=== PATIENT | female | born 1980 | race Caucasian/White ===

== ENCOUNTER 2022-05-03 12:03 | Emergency (ER) | payer OTHER ==
[~2022-05-03] VITALS: Ht 160 cm; Wt 121.1 kg
[2022-05-03 12:40] LABS: BASO % 0.2 % (0.0-1.0); EOS # 0.2 10*3/uL (0.0-0.4); EOS % 0.9 % (1.0-4.0); LYMPH % 5.7 % (27.0-41.0); MEAN CELL VOLUME 81.8 fl (81.0-99.0); MEAN CORPUSCULAR HGB 25.9 pg (27.0-31.0); MEAN CORPUSCULAR HGB CONC 31.7 g/dl (33.0-37.0); MEAN PLATELET VOLUME 9.8 fl (9.6-12.3); MONO # 1.1 10*3/uL (0.1-1.0); MONO % 6.8 % (3.0-9.0); NEUT # 14.4 10*3/uL (2.3-7.9); NEUT % 85.9 % (47.0-73.0); PLATELET COUNT AUTOMATED 337 10*3/uL (130-400); RED BLOOD COUNT 5.87 10*6/uL (4.10-5.10); RED CELL DISTRI WIDTH 15.1 % (0-14.5); WHITE BLOOD COUNT 16.8 10*3/uL (4.8-10.8)
[2022-05-03 12:56] LABS: ALKALINE PHOSPHATASE 64 U/L (46-116); BUN 14 mg/dl (9-23); CHLORIDE 102 mmol/L (98-107); LIPASE 31 U/L (12-53); POTASSIUM 4.3 mmol/L (3.4-5.1); SGPT/ALT 10 U/L (10-49); TOTAL PROTEIN 6.7 gm/dL (6.0-8.0)
[2022-05-03 13:45] LABS: BILIRUBIN Negative (Negative); BLOOD Trace-Lysed (Negative); CLARITY Cloudy (Clear); COLOR Yellow (Yellow); GLUCOSE Negative (Negative); KETONE Negative (Negative); LEUKO ESTERASE Negative (Negative); NITRITE Negative (Negative)
[2022-05-03 13:51] LABS: MUCOUS 1+
[2022-05-03 13:52] LABS: BACTERIA 1+; RBC 0-2 rbc/hpf (0-2)
[2022-05-03] MEDS ORDERED: REGLAN10 M1 PO (14:21)
[2022-05-03] MEDS ORDERED: CIPRO500 MG PO (14:21)
== END 2022-05-03 14:31 | disposition home or self-care (01) ==
LOC: ED 12:03
PROVIDERS: Internal Medicine
DX: R11.2 Nausea with vomiting, unspecified (principal); Z88.0 Allergy status to penicillin; Z88.5 Allergy status to narcotic agent; R10.13 Epigastric pain